=== PATIENT | female | born 2000 | race Caucasian/White ===

== ENCOUNTER 2021-10-03 12:03 | Observation (INO) | payer MEDICAID, OTHER ==
[~2021-10-03] VITALS: Ht 154.9 cm; Wt 66.7 kg
[2021-10-03] MEDS ORDERED: LORazepam INJ 2 MG/ML (ATIVAN) VIAL ONE ×2 (12:14→15:27)
[2021-10-03] MEDS ORDERED: LORazepam INJ 2 MG/ML (ATIVAN) VIAL IVP STA (12:17)
--- NOTE | 2021-10-03 12:22 | ED General ---
General Stated Complaint: INTOXICATED Source of Information: Patient, EMS, Police Exam Limitations: Intoxication History of Present Illness Date Seen by Provider: October 03, 2021 Time Seen by Provider: 12:03 Initial Comments 21-year-old female presenting with EMS and law enforcement from [facility]. She was at [facility] laying on the floor and rolling [id number]. She said that she had been using meth and that she loved meth. She was tearful at times and crying out intermittently. She was not answering most questions as she was just having rambling speech and crying while thrashing around on the bed. Allergies and Home Medications Allergies Coded Allergies: No Known Drug Allergies (Unverified , 10/03/21) Patient Home Medication List Home Medication List Reviewed: Yes Review of Systems Review of Systems Constitutional: see HPI EENTM: other (white foam at corners of her mouth) Unable to obtain ROS on arrival to ED as patient was too agitated and rambling speech with flight of ideas due to her methamphetamine abuse Past Vumzxja-Kkjdqi-Bqlequ Hx Patient Social History Substance use?: Yes Substance type: Methamphetamine Past Medical History Surgery/Hospitalization HX: Unable to obtain due to Methamphetamine Intoxication Physical Exam Vital Signs Vital Signs - First Documented 10/03/21 12:05 Temp 36.5 Pulse 113 Resp 26 B/P (MAP) 148/92 (110) Pulse Ox 97 O2 Delivery Room Air Capillary Refill : Height, Weight, BMI Height: '" Weight: lbs. oz. kg; BMI Method: General Appearance: Anxious, Moderate Distress (thrashing on the bed and crying out at times. rambling and flight of ideas with rapid speech) HEENT: PERRL/EOMI; No Moist Mucous Membranes (dry mucous membranes with white frothy mucus at corners of her lips) Neck: Full Range of Motion, Normal Inspection, Non Tender, Supple Respiratory: Chest Non Tender, Lungs Clear, Normal Breath Sounds, No Accessory Muscle Use, No Respiratory Distress Cardiovascular: Regular Rate, Rhythm, No Murmur, Normal Peripheral Pulses Gastrointestinal: Normal Bowel Sounds, No Pulsatile Mass, Non Tender, Soft Rectal: Deferred Extremity: Normal Capillary Refill, Normal Inspection, Normal Range of Motion, No Calf Tenderness, No Pedal Edema Neurologic/Psychiatric: Alert, Disoriented (not answering questions consistently other than stating her name) Skin: Warm/Dry, Other (multiple abrasions and old scars to her forearms that appear consistent with a history of cutting herself) Progress/Results/Core Measures Suspected Sepsis SIRS Temperature: Pulse: Respiratory Rate: Laboratory Tests 10/03/21 12:35: White Blood Count 9.5 Blood Pressure / Mean: Laboratory Tests 10/03/21 12:35: Creatinine 0.51L, Platelet Count 215, Total Bilirubin 0.4 10/03/21 13:51: Creatinine 0.51L Results/Orders Lab Results Laboratory Tests Test 10/03/21 12:35 10/03/21 13:15 10/03/21 13:51 Range/Units White Blood Count 9.5 4.3-11.0 10^3/uL Red Blood Count 4.59 3.80-5.11 10^6/uL Hemoglobin 13.3 11.5-16.0 g/dL Hematocrit 39 35-52 % Mean Corpuscular Volume 86 80-99 fL Mean Corpuscular Hemoglobin 29 25-34 pg Mean Corpuscular Hemoglobin Concent 34 32-36 g/dL Red Cell Distribution Width 14.4 10.0-14.5 % Platelet Count 215 130-400 10^3/uL Mean Platelet Volume 12.3 H 9.0-12.2 fL Immature Granulocyte % (Auto) 0 % Neutrophils (%) (Auto) 56 42-75 % Lymphocytes (%) (Auto) 32 12-44 % Monocytes (%) (Auto) 10 0-12 % Eosinophils (%) (Auto) 1 0-10 % Basophils (%) (Auto) 1 0-10 % Neutrophils # (Auto) 5.4 1.8-7.8 10^3/uL Lymphocytes # (Auto) 3.1 1.0-4.0 10^3/uL Monocytes # (Auto) 0.9 0.0-1.0 10^3/uL Eosinophils # (Auto) 0.1 0.0-0.3 10^3/uL Basophils # (Auto) 0.1 0.0-0.1 10^3/uL Immature Granulocyte # (Auto) 0.0 0.0-0.1 10^3/uL Urine Color YELLOW Urine Clarity CLEAR Urine pH 6.0 5-9 Urine Specific [place] 1.020 1.016-1.022 Urine Protein NEGATIVE NEGATIVE Urine Glucose (UA) NEGATIVE NEGATIVE Urine Ketones NEGATIVE NEGATIVE Urine Nitrite NEGATIVE NEGATIVE Urine Bilirubin NEGATIVE NEGATIVE Urine Urobilinogen 0.2 < = 1.0 MG/DL Urine Leukocyte Esterase NEGATIVE NEGATIVE Urine RBC (Auto) NEGATIVE NEGATIVE Urine RBC NONE /HPF Urine WBC RARE /HPF Urine Squamous Epithelial Cells 2-5 /HPF Urine Crystals NONE /LPF Urine Bacteria TRACE /HPF Urine Casts NONE /LPF Urine Mucus MODERATE H /LPF Urine Culture Indicated NO Sodium Level 139 140 135-145 MMOL/L Potassium Level 6.0 H 3.2 L 3.6-5.0 MMOL/L Chloride Level 105 105 98-107 MMOL/L Carbon Dioxide Level 21 20 L 21-32 MMOL/L Anion Gap 13 15 H 5-14 MMOL/L Blood Urea Nitrogen 13 11 7-18 MG/DL Creatinine 0.51 L 0.51 L 0.60-1.30 MG/DL Estimat Glomerular Filtration Rate 135 135 BUN/Creatinine Ratio 25 22 Glucose Level 84 75 70-105 MG/DL Calcium Level 8.9 8.6 8.5-10.1 MG/DL Corrected Calcium 8.7 8.5-10.1 MG/DL Total Bilirubin 0.4 0.1-1.0 MG/DL Aspartate Amino Transf (AST/SGOT) 40 H 5-34 U/L Alanine Aminotransferase (ALT/SGPT) 24 0-55 U/L Alkaline Phosphatase 60 40-136 U/L Myoglobin 59.4 10.0-92.0 NG/ML Total Protein 7.2 6.4-8.2 GM/DL Albumin 4.2 3.2-4.5 GM/DL Salicylates Level < 0.3 L 5.0-20.0 MG/DL Urine Opiates Screen NEGATIVE NEGATIVE Urine Oxycodone Screen NEGATIVE NEGATIVE Urine Methadone Screen NEGATIVE NEGATIVE Urine Propoxyphene Screen NEGATIVE NEGATIVE Acetaminophen Level < 10 L 10-30 UG/ML Urine Barbiturates Screen NEGATIVE NEGATIVE Ur Tricyclic Antidepressants Screen NEGATIVE NEGATIVE Urine Phencyclidine Screen NEGATIVE NEGATIVE Urine Amphetamines Screen POSITIVE H NEGATIVE Urine Methamphetamines Screen POSITIVE H NEGATIVE Urine Benzodiazepines Screen NEGATIVE NEGATIVE Urine Cocaine Screen NEGATIVE NEGATIVE Urine Cannabinoids Screen POSITIVE H NEGATIVE Serum Alcohol 215 H <10 MG/DL Smear Scan PLATELET SCAN OK My Orders Orders - TERRANCE CARSON MD Lorazepam Injection (Ativan Injection) (10/03/21 12:14) Ua Culture If Indicated (10/03/21 12:17) Cbc With Automated Diff (10/03/21 12:17) Comprehensive Metabolic Panel (10/03/21 12:17) Alcohol (10/03/21 12:17) Drug Screen Stat (Urine) (10/03/21 12:17) Acetaminophen (10/03/21 12:17) Salicylate (10/03/21 12:17) Ekg Tracing (10/03/21 12:17) Ed Iv/Invasive Line Start (10/03/21 12:17) Monitor-Rhythm Ecg Trace Only (10/03/21 12:17) Lactated Ringers (Lr 1000 Ml Iv Solution (10/03/21 12:30) Lovett Cath (10/03/21 12:17) Lorazepam Injection (Ativan Injection) (10/03/21 12:17) Myoglobin Serum (10/03/21:) Lactated Ringers (Lr 1000 Ml Iv Solution (10/03/21 12:46) O2 (10/03/21 12:46) End Tidal Co2 (10/03/21 12:46) Urine Bedside (10/03/21 13:08) Covid 19 Inhouse Test (10/03/21 13:08) Ns Iv 1000 Ml (Sodium Chloride 0.9%) (10/03/21 13:30) Basic Metabolic Panel (10/03/21 13:38) Ed Admission (Communication) (10/03/21 14:06) Restraints: Medically Indicate Q2H (10/03/21 14:15) Vital Signs/I&O 10/03/21 12:05 Temp 36.5 Pulse 113 Resp 26 B/P (MAP) 148/92 (110) Pulse Ox 97 O2 Delivery Room Air Capillary Refill : Progress Note #1: Progress Note Use soft restraints on wrists to help keep patient from pulling out her IV access placed by EMS or hurting herself as we were not able to redirect her verbally or by distracting her with questions about herself. Give Ativan 2 mg IV to help with her agitation and methamphetamine intoxication. Continue with IVF for hydration. EMS gave 1 L of NS so will continue with 1 L of LR for hydration. Place Lovett catheter to monitor urine output and obtain specimen for testing. Check ECG and place on cardiac property assessment monitor to watch for arrhythmia or irregular heart beat or signs of ischemia. Supplemental O2 to help with oxygen saturation as she was sedated from the Ativan. check for drugs of abuse as well as alcohol, salicylate and acetaminophen levels. Myoglobin to check for possible rhabdoymyolysis. Prior to starting the 1 L of LR for continued hydration the patient did have systolic blood pressure drop to 87. This was after the Ativan had been administered. Will add a 2nd L of LR wide open to bolus her and improve here blood pressure. On recheck as the fluids are infusing her systolic pressure came up to 117. She maintained blood pressures with systolic range 117-136 so when the 2 L of LR had infused NS was ordered to go at 150 ml/hr to continue maintenance hydration fluids while waiting on labs and results. Progress Note #2: Time: 14:00 Progress Note CBC without acute significant abnormality. Chemistry initially had a potassium of 6 but had hemolysis. A redraw for a basic metabolic was ordered. The urinalysis did not show or signs of infection. Her drug screen came back showing methamphetamines, amphetamines, marijuana. She also had an alcohol level of 215. Her salicylate and acetaminophen levels were 0. The police were contacted again to see if they had any contact information or family to contact for the patient but they advised that he still did not have any information for the patient. As she is still sedated from Ativan as well as the alcohol and methamphetamines she has on board, will check with the hospitalist about possible admission for monitoring as it can take several hours or more than a day to fully wake up and have the alcohol were out of her system where she would be able to communicate effectively and be able to obtain useful information from the patient. d/w Dr. Enamorado and she accepted pt for observation admit to the ICU for closer monitoring. 1430 Repeat BMP came back as patient was leaving and showed potassium of 3.2. ECG Initial ECG Impression Date: October 03, 2021 Initial ECG Impression Time: 13:09 Initial ECG Rate: 80 Initial ECG Rhythm: Normal Sinus Initial ECG Comparisson: No Previous ECG Available Comment Normal sinus rhythm with a heart rate of 80 bpm. KS interval [address] elevation. QT interval 403 ms with a QTc interval 439 ms. There is no prior tracing for comparison. Departure Communication (Admissions) Time/Spoke to Admitting Phy: 14:[address] Enamorado the on-call provider for the hospitalist service. As the patient does not have a primary provider and there is no information on her in the system she would go as an unassigned patient. She accepted her for admission with her methamphetamine and alcohol abuse for an observation admission. Will monitor in the ICU to ensure that her airway remains protected and intact and that she does not require any additional sedation or assistance. Hopefully with her waking up she could provide additional information about her history and situation as she was unable to provide any of that on arrival to the ED and the police were not able to find any information in the legal system about her or any contacts for her. Impression Primary Impression: Methamphetamine intoxication Additional Impressions: Acute alcoholic intoxication Qualified Codes: F10.921 - Alcohol use, unspecified with intoxication delirium Marijuana abuse Disposition: 30 STILL A PATIENT Condition: Stable Admissions Decision to Admit Reason: Admit from ER (General) Decision to Admit/Date: October 03, 2021 Time/Decision to Admit Time: 14:01 TERRANCE CARSON MD October 03, 2021 12:22
[2021-10-03] MEDS ORDERED: LACTATED RINGERS 1,000 ML IV ONE (12:30)
[2021-10-03 12:43] LABS: BILIRUBIN,URINE NEGATIVE (NEGATIVE); CLARITY,URINE CLEAR; COLOR,URINE YELLOW; GLUCOSE, URINE (UA) NEGATIVE (NEGATIVE); KETONES,URINE NEGATIVE (NEGATIVE); LEUKOCYTE ESTERASE ,URINE NEGATIVE (NEGATIVE); NITRITE,URINE NEGATIVE (NEGATIVE); PROTEIN,URINE NEGATIVE (NEGATIVE)
[2021-10-03] MEDS ORDERED: LACTATED RINGERS 1,000 ML IV STA (12:46)
[2021-10-03 12:55] LABS: BASOPHILS # (AUTO) 0.1 10^3/uL (0.0-0.1); BASOPHILS % (AUTO) 1 % (0-10); EOSINOPHILS # (AUTO) 0.1 10^3/uL (0.0-0.3); EOSINOPHILS % (AUTO) 1 % (0-10); HEMATOCRIT 39 % (35-52); HEMOGLOBIN 13.3 g/dL (11.5-16.0); LYMPHOCYTES # (AUTO) 3.1 10^3/uL (1.0-4.0); LYMPHOCYTES % (AUTO) 32 % (12-44); MEAN CORPUSCULAR HEMOGLOBIN 29 pg (25-34); MEAN CORPUSCULAR HGB CONC 34 g/dL (32-36); MEAN CORPUSCULAR VOLUME 86 fL (80-99); MEAN PLATELET VOLUME 12.3 fL (9.0-12.2); MONOCYTES # (AUTO) 0.9 10^3/uL (0.0-1.0); MONOCYTES % (AUTO) 10 % (0-12); NEUTROPHILS # (AUTO) 5.4 10^3/uL (1.8-7.8); NEUTROPHILS % (AUTO) 56 % (42-75); PLATELET COUNT 215 10^3/uL (130-400); WHITE BLOOD COUNT 9.5 10^3/uL (4.3-11.0)
[2021-10-03 13:05] LABS: BACTERIA,URINE TRACE /HPF; WBC,URINE RARE /HPF
[2021-10-03 13:11] LABS: SMEAR SCAN COMMENT PLATELET SCAN OK
[2021-10-03 13:29] LABS: SODIUM 139 MMOL/L (135-145)
[2021-10-03] MEDS ORDERED: NS IV 1000 ML 1,000 ML IV SCH ×2 (13:30→14:45)
[2021-10-03 13:32] LABS: ALANINE AMINOTRANSFERASE 24 U/L (0-55); ALBUMIN 4.2 GM/DL (3.2-4.5); ALKALINE PHOSPHATASE 60 U/L (40-136); BILIRUBIN,TOTAL 0.4 MG/DL (0.1-1.0); BUN/CREATININE RATIO 25; CALCIUM 8.9 MG/DL (8.5-10.1); CARBON DIOXIDE 21 MMOL/L (21-32); CHLORIDE 105 MMOL/L (98-107); CREATININE SERUM 0.51 MG/DL (0.60-1.30); GFR ESTIMATED 135; GLUCOSE 84 MG/DL (70-105); TOTAL PROTEIN 7.2 GM/DL (6.4-8.2)
[2021-10-03 13:33] LABS: ACETAMINOPHEN < 10 UG/ML (10-30); SALICYLATE < 0.3 MG/DL (5.0-20.0)
[2021-10-03 13:58] LABS: AMPHETAMINE SCREEN, URINE POSITIVE (NEGATIVE); BARBITURATE SCREEN URINE NEGATIVE (NEGATIVE); BENZODIAZEPINES SCREEN URINE NEGATIVE (NEGATIVE); CANNABINOID SCREEN, URINE POSITIVE (NEGATIVE); COCAINE SCREEN URINE NEGATIVE (NEGATIVE); METHADONE STAT NEGATIVE (NEGATIVE); OPIATE SCREEN URINE NEGATIVE (NEGATIVE); OXYCODONE STAT NEGATIVE (NEGATIVE); PROPOXYPHENE STAT NEGATIVE (NEGATIVE); TRICYCLIC ANTIDEPRESSANTS SCRE NEGATIVE (NEGATIVE)
[2021-10-03 14:18] LABS: POTASSIUM 3.2 MMOL/L (3.6-5.0)
[2021-10-03 14:19] LABS: CALCIUM 8.6 MG/DL (8.5-10.1); CREATININE SERUM 0.51 MG/DL (0.60-1.30)
[2021-10-03] MEDS ORDERED: ACETAMINOPHEN 325 MG TABLET PO PRN ×3 (14:45→15:45)
[2021-10-03] MEDS ORDERED: ONDANSETRON 4 MG/2 ML (SDV) Z0FRAN IV PRN ×2 (14:45→15:45)
[2021-10-03] MEDS ORDERED: LORazepam INJ 2 MG/ML (ATIVAN) VIAL IVP PRN (14:45)
[2021-10-03] MEDS ORDERED: LORazepam INJ 2 MG/ML (ATIVAN) VIAL IV PRN (15:45)
--- NOTE | 2021-10-03 16:06 | Tele-ICU Consult ---
History of Present Illness History of Present Illness Date Seen by Provider: October 03, 2021 Time Seen by Provider: 16:06 Date of Admission (Tele-ICU Physician , consultation) Available chart/ vitals / labs / Images reviewed H&P is from ER notes Patient's information available about PMH, Shx, Fhx allergy reviewed in EMR. ROS as per chart and RN report Now in ICU, hemodynamically stable Video assessment done using teleICU camera, rest of exam as per RN Discussed with RN. A/P methamphetamine and alcohol abuse with acute intoxication severe agitation due to above - prn benzo , nonitor airways -IVF hydration - thimine / folate - replace lytes Lines : (Central Line Necessity Reviewed) Lovett: OG: Nutrition: Analgesia: Anxiety/ delirium VTE Prophylaxis: soon ambulation Stress Ulcer Prophylaxis: na Plans in collaboration with bedside consultants and IM MDs. Discussed with RN to reach out if any questions or concerns A total of 20 minutes of critical care time was devoted to this patient today, required to treat and/or prevent further deterioration of critical care condition ( as above ) . Allergies and Home Medications Allergies Coded Allergies: No Known Drug Allergies (Unverified , 10/03/21) Past Medical/Social/Family Hx Patient Social History Substance use?: Yes Substance type: Methamphetamine, Marijuana Alcohol Use?: Yes Pt stated abuse/neglect: No Current Status Advance Directives: No Communicates: Verbally Primary Language: Micronesian Preferred Spoken Language: Micronesian Review of Systems Constitutional: see HPI Focused Exam Height, Weight, BMI Height: '" Weight: lbs. oz. kg; 23.94 BMI Method: Exam Exam Patient acknowledged, consented, and participated in this virtual visit which was conducted using real time audio/video Vital Signs Date Time Temp Pulse Resp B/P (MAP) Pulse Ox O2 Delivery O2 Flow Rate FiO2 10/03/21 16:00 94 14 106/55 100 Room Air 10/03/21 15:54 36.0 10/03/21 15:30 108 10/03/21 15:30 107 23 131/94 99 Room Air 10/03/21 14:45 89 13 134/80 100 Nasal Cannula 2.00 10/03/21 12:05 36.5 113 26 148/92 (110) 97 Room Air Height & Weight Height: '" Weight: lbs. oz. kg; 23.94 BMI Method: General Appearance: No Apparent Distress, Anxious, Moderate Distress (thrashing on the bed and crying out at times. rambling and flight of ideas with rapid speech) HEENT: PERRL/EOMI; No Moist Mucous Membranes (dry mucous membranes with white frothy mucus at corners of her lips) Neck: Full Range of Motion, Normal Inspection, Non Tender, Supple Respiratory: Chest Non Tender, Lungs Clear, Normal Breath Sounds, No Accessory Muscle Use, No Respiratory Distress Cardiovascular: Regular Rate, Rhythm, No Murmur, Normal Peripheral Pulses Capillary Refill: Less Than 3 Seconds Extremity: Normal Capillary Refill, Normal Inspection, Normal Range of Motion, No Calf Tenderness, No Pedal Edema Neurologic/Psychiatric: Alert, Disoriented (not answering questions consistently other than stating her name) Skin: Warm/Dry, Other (multiple abrasions and old scars to her forearms that appear consistent with a history of cutting herself) Results Lab Laboratory Tests 10/03/21 12:35 10/03/21 13:51 Assessment/Plan Assessment/Plan ` SAUL BARRIOS MD October 03, 2021 16:06
[2021-10-03] MEDS ORDERED: MAGNESIUM 1 GM/100 ML IVPB 100 ML IV ONE (16:30)
[2021-10-03 16:31] VITALS: BP 106/55
[2021-10-03] MEDS: NS IV 1000 ML 1,000 ML IV SCH (16:38)
[2021-10-03] MEDS: THIAMINE INJECTION 100 MG, FOLIC ACID INJECTION 1 MG in NS (IVPB) 50 ML IV SCH (16:39)
[2021-10-03] MEDS: POTASSIUM CL 10MEQ/50ML IVPB 50 ML IV SCH ×4 (16:39→19:41)
[2021-10-03] MEDS ORDERED: RT-ALBUTEROL SULF 2.5 MG/3 ML PRE-MIX VIAL INH PRN (16:45)
[2021-10-04] MEDS: NS IV 1000 ML 1,000 ML IV SCH ×3 (00:22→07:03)
[2021-10-04 05:18] LABS: HEMATOCRIT 41 % (35-52); MEAN CORPUSCULAR HEMOGLOBIN 29 pg (25-34); MEAN CORPUSCULAR HGB CONC 32 g/dL (32-36); MEAN CORPUSCULAR VOLUME 89 fL (80-99); MEAN PLATELET VOLUME 11.5 fL (9.0-12.2); PLATELET COUNT 223 10^3/uL (130-400); WHITE BLOOD COUNT 7.7 10^3/uL (4.3-11.0)
[2021-10-04 05:56] LABS: POTASSIUM 4.2 MMOL/L (3.6-5.0)
[2021-10-04 05:57] LABS: CALCIUM 8.8 MG/DL (8.5-10.1)
[2021-10-04 06:01] LABS: CREATININE SERUM 0.53 MG/DL (0.60-1.30)
[2021-10-04] MEDS: THIAMINE INJECTION 100 MG, FOLIC ACID INJECTION 1 MG in NS (IVPB) 50 ML IV SCH (09:00)
--- NOTE | 2021-10-04 09:55 | History & Physical-Hospitalist ---
History of Present Illness HPI/Chief Complaint Patient is a 21-year-old female with past medical history of methamphetamine abuse, alcohol abuse, depression who presents to the emergency department for altered mental status. She recalls nothing from yesterday other than being with friends. All history is obtained from the records. She reportedly was found by police agitated at the [facility]. She is brought into the ER for evaluation. Per the ER she cannot give him any history and just was repeatedly saying "I love meth." She was given IV Ativan for her agitation as she is uncooperative with exam and was admitted overnight for observation. She reports feeling much better today but is tearful. She cannot remember the friends that she was with and her boyfriend is not answering his phone. Source: patient Date Seen 10/04/21 Time Seen by a Provider: 09:49 Attending Physician Unknown PCP Admitting Physician: Bettie Enamorado MD Attending Physician: Bettie Enamorado MD Referring Physician Date of Admission October 03, 2021 at 15:21 Home Medications & Allergies Home Medications Reviewed patient Home Medication Reconciliation performed by pharmacy medication reconciliations restaurant maintenance technician and/or nursing. Patients Allergies have been reviewed. Allergies Allergies Coded Allergies No Known Drug Allergies (Unverified10/03/21) Past Qgcngsr-Bgsfkk-Icorkj Hx Patient Social History Marrital Status: single Tobacco Use?: Yes Substance use?: Yes Substance type: Methamphetamine, Marijuana Alcohol Use?: Yes Pt feels they are or have been: No Current Status Advance Directives: No Communicates: Verbally Primary Language: Irish Preferred Spoken Language: Irish Family Medical History Reviewed Nursing Family Hx No Pertinent Family Hx Review of Systems Constitutional: see HPI EENTM: no symptoms reported Respiratory: no symptoms reported Cardiovascular: no symptoms reported Gastrointestinal: no symptoms reported Genitourinary: no symptoms reported Musculoskeletal: no symptoms reported Skin: no symptoms reported Psychiatric/Neurological: See HPI Physical Exam Physical Exam Vital Signs Vital Signs - First Documented 10/03/21 10/03/21 12:05 14:45 Temp 36.5 Pulse 113 Resp 26 B/P (MAP) 148/92 (110) Pulse Ox 97 O2 Delivery Room Air O2 Flow Rate 2.00 Capillary Refill : Less Than 3 Seconds Height, Weight, BMI Height: '" Weight: lbs. oz. kg; 27.79 BMI Method: General Appearance: No Apparent Distress, WD/WN, Other (dishevelled) HEENT: PERRL/EOMI, Moist Mucous Membranes Respiratory: Lungs Clear, No Respiratory Distress Cardiovascular: Regular Rate, Rhythm, No Murmur Gastrointestinal: Normal Bowel Sounds, Non Tender, Soft Extremity: No Calf Tenderness, No Pedal Edema Neurologic/Psychiatric: Alert, Oriented x3, Normal Mood/Affect Skin: Normal Color, Warm/Dry Results Results/Procedures Labs Laboratory Tests 10/03/21 13:51 10/04/21 04:55 Patient resulted labs reviewed. Assessment/Plan Admission Diagnosis Methamphetamine intoxication Admission Status: Observation Reason for Inpatient Admission: see below Assessment and Plan Methamphetamine intoxication Alcohol intoxication Now alert and oriented Banana Bag Ativan for agitation prn Can DC home if doing well later today Diagnosis/Problems Diagnosis/Problems (1) Methamphetamine intoxication Status: Acute (2) Acute alcoholic intoxication Status: Acute Qualifiers: Complication of substance-induced condition: with delirium Qualified Codes: F10.921 - Alcohol use, unspecified with intoxication delirium (3) Marijuana abuse Status: Acute BETTIE ENAMORADO MD October 04, 2021 09:55
--- NOTE | 2021-10-04 10:21 | Tele-ICU Progress Note ---
Subjective Date Seen by a Provider: October 04, 2021 Time Seen by a Provider: 10:18 Subjective/Events-last exam Admitted for EtOH, amphetamine intoxication, less agitated, alert and oriented, now on general diet, eating ok, VS ok Sepsis Event Evaluation Height, Weight, BMI Height: '" Weight: lbs. oz. kg; 27.79 BMI Method: Exam Exam Patient acknowledged, consented, and participated in this virtual visit which was conducted using real time audio/video Vital Signs Date Time Temp Pulse Resp B/P (MAP) Pulse Ox O2 Delivery O2 Flow Rate FiO2 10/04/21 09:00 73 14 123/74 97 Room Air 10/04/21 08:00 79 15 118/75 100 Room Air 10/04/21 07:27 37.0 10/04/21 07:00 80 12 106/77 100 Room Air 10/04/21 07:00 76 10/04/21 06:00 85 104/68 100 Room Air 10/04/21 05:00 93 21 126/91 100 Room Air 10/04/21 04:00 100 Room Air 10/04/21 04:00 78 15 110/93 100 Room Air 10/04/21 03:00 99 20 106/76 100 Room Air 10/04/21 02:00 74 14 109/87 100 Room Air 10/04/21 01:00 81 10/04/21 01:00 82 15 100/74 100 Room Air 10/04/21 00:00 100 Room Air 10/04/21 00:00 76 14 117/67 100 Room Air 10/03/21 23:38 36.1 10/03/21 23:00 78 14 117/74 100 Room Air 10/03/21 22:00 80 14 112/77 100 Room Air 10/03/21 21:00 93 14 112/77 100 Room Air 10/03/21 20:00 100 Room Air 10/03/21 20:00 99 16 135/91 95 Room Air 10/03/21 19:49 36.3 10/03/21 19:41 85 12 106/81 100 Room Air 10/03/21 19:00 83 10/03/21 18:00 90 15 110/75 100 Room Air 10/03/21 17:00 87 13 110/80 100 Room Air 10/03/21 16:31 36.0 94 100 10/03/21 16:00 94 14 106/55 100 Room Air 10/03/21 15:54 36.0 10/03/21 15:30 108 10/03/21 15:30 107 23 131/94 99 Room Air 10/03/21 15:20 Room Air 10/03/21 14:45 89 13 134/80 100 Nasal Cannula 2.00 10/03/21 12:05 36.5 113 26 148/92 (110) 97 Room Air I & O 10/04/21 07:00 Intake Total 5350 ml Output Total 1900 ml Balance 3450 ml Height & Weight Height: '" Weight: lbs. oz. kg; 27.79 BMI Method: General Appearance: No Apparent Distress, WD/WN, Other (dishevelled) HEENT: PERRL/EOMI, Moist Mucous Membranes Neck: Full Range of Motion, Normal Inspection, Non Tender, Supple Respiratory: Lungs Clear, No Respiratory Distress Cardiovascular: Regular Rate, Rhythm, No Murmur, Other (no tachycardia) Capillary Refill: Less Than 3 Seconds Gastrointestinal: normal bowel sounds, non tender, soft Extremity: No Calf Tenderness, No Pedal Edema Neurologic/Psychiatric: Alert, Oriented x3, Normal Mood/Affect Skin: Normal Color, Warm/Dry Results Lab Laboratory Tests 10/03/21 12:35 10/03/21 13:51 10/04/21 04:55 Assessment/Plan Assessment/Plan ready for discharge according to PCP, family coming to get her. This was no a suicide attempt. Critical Care: Critically Ill Patient Time spent with patient (mins): 20 TATYANA GARNER MD October 04, 2021 10:21
[2021-10-04 13:30] VITALS: BP 116/88
== END 2021-10-04 13:30 | disposition home or self-care (01) ==
LOC: ER FS 12:05 → EDBD 15:21 → ICU 15:21
PROVIDERS: ADMIT Family Medicine; ATTEND Family Medicine
DX: F15.129 Other stimulant abuse with intoxication, unspecified (principal); R45.1 Restlessness and agitation; F10.129 Alcohol abuse with intoxication, unspecified; Y90.7 Blood alcohol level of 200-239 mg/100 ml; F12.10 Cannabis abuse, uncomplicated; F32.A Depression, unspecified; Z20.822 Contact with and (suspected) exposure to COVID-19
CPT/HCPCS: 36415; 51702; 80048 ×2; 80053; 80306; 81000; 83735; 83874; 84703; 85025; 85027; 87636; 93041; 96365; 96366; 96375; 96376; 99285; G0480 ×3; 80320; 80329; 93005; 96368; G0378